=== PATIENT | male | born 1980 | race Caucasian/White ===

== ENCOUNTER 2022-07-16 05:48 | Day surgery (SDC) | payer OTHER ==
[2022-07-16] MEDS ORDERED: Versed 2 MG/2 ML Injection IV ONE (06:07)
[2022-07-16] MEDS ORDERED: Lactated Ringers 1,000 ML IV SCH (06:30)
[2022-07-16] MEDS ORDERED: Xylocaine-Mpf 2% 5 Ml Vial ONE (07:17)
[2022-07-16] MEDS ORDERED: DIPRIVAN 200 MG/20 ML IV ONE ×2 (07:17→08:04)
[2022-07-16 08:54] VITALS: O2SAT 97
--- NOTE | 2022-07-16 08:54 | OP ---
SURGERY DATE/TIME: 07/16/2022 0745 PREOPERATIVE DIAGNOSIS: Rectal bleeding, intermittent constipation and diarrhea. POSTOPERATIVE DIAGNOSIS: Normal colon. PROCEDURE: Colonoscopy. SURGEON: Dr. Allen. ANESTHESIA: MAC. Medications given by anesthesia department. HISTORY: The patient is a 42-year-old white male patient with problems with rectal bleeding, intermittent constipation and diarrhea. The patient was felt the need to have endoscopic evaluation. He was appraised of the risks of the procedure including the risk of perforation, phlebitis, untoward reaction to medication, bleeding and missed lesions. The patient verbalized his understanding and desired to have the procedure performed. DESCRIPTION OF PROCEDURE: The patient was given the medications by the anesthesia department. He had continuous pulse oximetry, ECG monitoring and intermittent blood pressure monitoring during the examination. He was placed in the left lateral decubitus position. A digital rectal examination was performed and revealed normal anal sphincter tone, no masses, minimal hemorrhoids and normal prostate. The flexible Olympus pediatric colonoscope was used to intubate the rectum. A view of the colon was developed sequentially to the cecum including approximately 20 cm into the terminal ileum. Upon insertion and withdrawal, including a retroflex view in the rectum, no mucosal lesions were encountered. The scope was removed from the patient who tolerated the procedure well and was sent back to OP recovery in good condition. The prep was noted to be fair to good.
[2022-07-16 09:09] VITALS: BP 164/94; PULSE 67
== END 2022-07-16 09:05 | disposition home or self-care (01) ==
LOC: SDC 05:48
PROVIDERS: ATTEND Family Medicine
DX: K62.5 Hemorrhage of anus and rectum (principal); R19.7 Diarrhea, unspecified; K59.00 Constipation, unspecified; K64.9 Unspecified hemorrhoids; E16.2 Hypoglycemia, unspecified
CPT/HCPCS: 82947; J2250; J2704

== ENCOUNTER 2022-09-20 16:36 | Emergency (ER) | payer OTHER ==
--- NOTE | 2022-09-20 17:07 | ERPHSYRPT ---
- History of Present Illness Time Seen by Provider: 09/20/22 17:07 Source: patient Exam Limitations: no limitations Physician History: This is a 42-year-old overweight white male patient of Dr. Bee who has seen Dr. Bee only a few times since he moved here from [place]. Patient has chronic back pain issues. Patient denies any acute trauma. However in the last few weeks he has had intermittent back pain that is now constant and worsening. He does have a history of hypothyroidism, fibromyalgia, diabetes, anxiety issues and hypertension. Medications such as gabapentin and Tylenol do not work for him. He is "allergic" to naproxen. He has used Vicoprofen in the past which has been helpful. Patient has a history of sciatica and this is what it feels like to him. Timing/Duration: week(s), intermittent, worse Method of Injury: other (No injury) Quality: sharp, stabbing Back Pain Location: lumbar spine, paraspinous muscles Back Pain Radiation: buttocks, upper legs Severity of Pain-Max: moderate Modifying Factors: Improves With: movement Associated Symptoms: lower back pain, No urinary incontinence, No loss of bowel control, No numbness in legs/feet, No weakness, No sensory/motor loss, No tingling in legs/feet Previous symptoms: same symptoms as today Allergies/Adverse Reactions: acetaminophen [From Tylenol] Allergy (Verified 09/20/22 17:21) naproxen Adverse Reaction (Severe, Verified 09/20/22 17:21) pt states causes rectal bleeding. Home Medications: Levothyroxine Sodium 50 mcg PO DAILY 07/01/22 [History] Metformin HCl 500 mg [Glucophage 500 MG] 500 mg PO UD 07/01/22 [History] Testosterone Cypionate 1.5 ml IM UD 07/01/22 [History] clonazePAM [Klonopin] 1 mg PO TID 07/01/22 [History] Travel Risk - International Travel Have you traveled outside of the country in past 3 weeks: No - Coronavirus Screening Are you exhibiting any of the following symptoms?: No Close contact with a COVID-19 positive Pt in past 14-21 Days: No - Review of Systems Constitutional: No Symptoms Eyes: No Symptoms Ears, Nose, & Throat: No Symptoms Respiratory: No Symptoms Cardiac: No Symptoms Abdominal/Gastrointestinal: No Symptoms Genitourinary Symptoms: No Symptoms Musculoskeletal: Back Pain, No Injury Skin: No Symptoms Neurological: No Symptoms Psychological: No Symptoms Endocrine: No Symptoms Hematologic/Lymphatic: No Symptoms Immunological/Allergic: No Symptoms All Other Systems: Reviewed and Negative - Past Medical History Pertinent Past Medical History: Yes Neurological History: No Pertinent History ENT History: No Pertinent History Cardiac History: Hypertension Respiratory History: Sleep Apnea Endocrine Medical History: Hypothyroidism, Other Musculoskeletal History: No Pertinent History GI Medical History: Hemorrhoids History: No Pertinent History Psycho-Social History: Anxiety Male Reproductive Disorders: No Pertinent History Other Medical History: reactive resistant insulin - Past Surgical History Past Surgical History: No - Social History Smoking Status: Current every day smoker Drug Use: none - Nursing Vital Signs Nursing Vital Signs: Initial Vital Signs Temperature 97.5 F 09/20/22 17:25 Pulse Rate 71 09/20/22 17:25 Respiratory Rate 18 09/20/22 17:25 Blood Pressure 128/75 09/20/22 17:25 O2 Sat by Pulse Oximetry 96 09/20/22 17:25 Pain Scale Pain Intensity [Back] 9 Pain Intensity 9 - Physical Exam General Appearance: no apparent distress, alert, anxiety, obese Eye Exam: PERRL/EOMI, eyes nml inspection Ears, Nose, Throat Exam: normal ENT inspection, moist mucous membranes Neck Exam: normal inspection, non-tender, supple, full range of motion Respiratory Exam: airway intact, No chest tenderness, No respiratory distress Gastrointestinal Exam: No tenderness Rectal Exam: not done Back Exam: normal inspection, decreased range of motion, muscle spasm, No CVA tenderness, No vertebral tenderness Extremity Exam: normal inspection, normal range of motion, pelvis stable Neurologic Exam: alert, oriented x 3, cooperative, 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 The level of complexity is based on the review of the patient's past medical history, review of the patient's medication list, review of the patient's drug allergy list, history present illness and findings on physical examination. The patient does not require any x-rays since there was no acute trauma or fall. He may benefit from outpatient MRI studies at a later time. We will provide him with Zofran ODT, intramuscular Dilaudid, intramuscular Norflex and intramuscular Solu-Medrol. Counseled pt/family regarding: diagnosis, need for follow-up Medical Desision Making - Discussion of managment Agreed on:: Treatment plan, need for follow-up - Risk of complications The pt has a mod risk of morbidity or mortality based on: Need for prescription drug management - Departure Departure Disposition: Home Clinical Impression: Acute exacerbation of chronic low back pain, Sciatica Condition: Stable Critical Care Time: No Referrals: SCOTT BEE MD [Primary Care Provider] - Follow up/PCP as directed Additional Instructions: Take your medication as prescribed. Follow-up with your prescribing physician for further evaluation and management. Monitor your blood sugar closely while taking the steroids. Prescriptions: Prednisone 10 mg [Deltasone 10 mg] 10 mg PO TID #12 tablet Orphenadrine Citrate 100 mg [Norflex 100 MG Tablet] 100 mg PO BID #10 tab
[2022-09-20 17:26] VITALS: BP 128/75; PULSE 71; O2SAT 96
[2022-09-20] MEDS ORDERED: Norflex 60 MG/2 ML IM ONE (17:56)
[2022-09-20] MEDS ORDERED: solu-MEDROL 125 MG, Sterile H2O 10 ml 2 ML IM ONE ×2 (17:56)
[2022-09-20] MEDS ORDERED: Hydromorphone 1 mg/ml Injection IM ONE (17:57)
[2022-09-20] MEDS ORDERED: ZOFRAN ODT 4 MG PO ONE (17:57)
[2022-09-20] MEDS ORDERED: Sterile H2O 10 ml IJ ONE (18:12)
[2022-09-20] MEDS ORDERED: Hydromorphone 1 mg/ml Injection ONE (18:13)
[2022-09-20] MEDS ORDERED: ZOFRAN ODT 4 MG ONE (18:13)
[2022-09-20] MEDS ORDERED: Norflex 60 MG/2 ML ONE (18:13)
[2022-09-20] MEDS ORDERED: solu-MEDROL ONE (18:13)
== END 2022-09-20 18:33 | disposition home or self-care (01) ==
LOC: ED 16:36
DX: G89.29 Other chronic pain (principal); M54.50 Low back pain, unspecified; M54.30 Sciatica, unspecified side; E11.9 Type 2 diabetes mellitus without complications; I10 Essential (primary) hypertension; Z79.84 Long term (current) use of oral hypoglycemic drugs; Z79.899 Other long term (current) drug therapy; Z79.52 Long term (current) use of systemic steroids; Z72.0 Tobacco use
CPT/HCPCS: 96372; 99283; J1170; J2360; J2930; Q0162

== ENCOUNTER 2023-02-16 08:56 | Day surgery (SDC) | payer OTHER ==
[2023-02-16] MEDS ORDERED: Sodium Chloride 0.9(Preservative Free) 10 ML IJ ONE (08:57)
[2023-02-16] MEDS ORDERED: LIDOCAINE HCL 1% 50 MG/5 ML VL PF IJ ONE (08:57)
[2023-02-16] MEDS ORDERED: Depo-Medrol 40 MG/ML IM ONE (08:57)
[2023-02-16] MEDS ORDERED: DIPRIVAN 200 MG/20 ML IV ONE ×2 (10:25→10:34)
--- NOTE | 2023-02-16 12:23 | XRAY ---
Indication: Lumbar ISABEL. Intraoperative fluoroscopy provided for 29 seconds. 3 digital spot image submitted for interpretation demonstrates posterior needle tip projecting just posterior to the L4-L5 interspace. Small amount of contrast injected for needle tip placement. Correlate with intraoperative findings/report.
--- NOTE | 2023-02-16 12:27 | XRAY ---
29 seconds of fluoroscopy was used in surgery for a lumbar ISABEL.
[2023-02-16] MEDS ORDERED: Lactated Ringers 1,000 ML IV ONE (12:29)
== END 2023-02-16 11:05 | disposition home or self-care (01) ==
LOC: SDC-PAIN 08:56
PROVIDERS: ATTEND Psychiatry & Neurology Pain Medicine
DX: M54.16 Radiculopathy, lumbar region (principal); Z79.899 Other long term (current) drug therapy
CPT/HCPCS: 62323; 72100; 77003; 82947; J1030; J2001; J2704; Q9966